=== PATIENT | male | born 1955 | race Two or more races ===

== ENCOUNTER 2024-07-23 19:11 | Emergency (ER) | payer MEDICARE ==
[~2024-07-23] VITALS: Ht 165.1 cm; Wt 80.9 kg
[~2024-07-23 19:11] MED LIST: TNFMISC
[2024-07-23 19:19] VITALS: TEMP 98
[2024-07-23] MEDS ORDERED: MOXI3DRO25 OD (22:31)
[2024-07-23 22:41] VITALS: BP 137/76; PULSE 62; RESP 18; O2SAT 98
== END 2024-07-23 22:53 | disposition home or self-care (01) ==
LOC: EDUNIT# 19:11 → EMS 19:11
DX: H10.89 Other conjunctivitis (principal); J45.909 Unspecified asthma, uncomplicated
CPT/HCPCS: 99283; Z7502